=== PATIENT | male | born 1990 | race Hispanic/Latino ===

== ENCOUNTER 2017-05-16 17:33 | Emergency (ER) | payer OTHER ==
[~2017-05-16] VITALS: Ht 185.4 cm; Wt 112.5 kg
--- OUTSIDE RECORDS SUMMARY | 2017-05-16 17:36 | XMS REPORT | Clinical Summary ---
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 Disp. Refills Start End Date Status Date clomiPHENE (CLOMID) 50 mg Take 50 mg by mouth every Active tablet other day. cephalexin (KEFLEX) 500 Take 1 capsule (500 mg 21 capsule 0 04/08/19 04/15/19 MG capsule total) by mouth 3 (three) 18 18 times daily for 7 days. traMADol (ULTRAM) 50 mg Take 1 tablet (50 mg 30 tablet 0 04/08/19 tablet total) by mouth every 6 18 18 (six) hours as needed for Pain for up to 10 days. Max Daily Amount: 200 mg Active Problems Not on file Encounters Date Type Specialty Care Team Description 04/08/2017 Hospital Darius Jaimes MD Encounter 04/08/2017 Procedure Pass 04/08/2017 Surgery Darius Jaimes MD VARICOCELECTOMY 04/07/2017 Anesthesia Galo Carlos Event MD Hannah after 05/15/2016 Immunizations Name Dates Previously Given Next Due Tdap 12/07/2014 Social History Tobacco Use Types Packs/Day Years Used Date Never Smoker Smokeless Tobacco: Never Used Alcohol Use Drinks/Week oz/Week Comments Yes occasionally Sex Assigned at Date Recorded Not on file Last Filed Vital Signs Vital Sign Reading Time Taken Blood Pressure 150/70 04/08/2017 1:35 PM [facility] Pulse 74 04/08/2017 1:35 PM [facility] Temperature 36.4 C (97.6 F) 04/08/2017 12:50 PM [facility] Respiratory Rate 16 04/08/2017 1:35 PM [facility] Oxygen Saturation 97% 04/08/2017 1:35 PM [facility] Inhaled Oxygen - - Concentration Weight 110.2 kg (242 lb 14.4 oz) 04/08/2017 9:20 AM [facility] Height 185.4 cm (6' 1") 04/08/2017 9:20 AM [facility] Body Mass Index 32.05 04/08/2017 9:20 AM [facility] Plan of Treatment Not on file Procedures Procedure Name Priority Date/Time Associated Diagnosis Comments SPERMATOCELECTOMY 04/08/2017 Scrotal varices 10:45 AM [facility] VARICOCELECTOMY 04/08/2017 Scrotal varices 10:45 AM [facility] after 05/15/2016 Results * Tissue Exam (04/08/2017 10:51 AM) Component Value Ref Range Case Report Surgical Pathology Report Case: [id number] Authorizing Provider: Darius Jaimes MD Collected: 04/08/2017 1051 Ordering Location: [facility] Received: 04/08/2017 1345 SERVICES Pathologist: Margarito Danielle MD Specimen: Spermatocele, left spermatocele sac DIAGNOSIS SCROTUM, LEFT, SPERMATOCELECTOMY: - SPERMATOCELE - MILD CHRONIC INFLAMMATION, NEGATIVE FOR MALIGNANCY Signing Pathologist Direct Phone Line: [phone] CPT Code(s) 36354 CLINICAL HISTORY Scrotal varices and spermatocele SPECIMEN SOURCE Left spermatocele sac GROSS DESCRIPTION The specimen is received in a formalin-filled container and labeled with the patient's information and labeled "spermatocele sac, left side" and consists of a flat segment of singh-pink membranous tissue measuring 1 x 0.8 x 0.1 cm. The tissue is sectioned and submitted entirely A1. CG/pl MICROSCOPIC DESCRIPTION Performed. Specimen Performing Laboratory Tissue - Spermatocele [facility] [address] [place] [address] after 05/15/2016
--- OUTSIDE RECORDS SUMMARY | 2017-05-16 17:36 | XMS REPORT ---
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 Allergies, Adverse Reactions, Alerts This patient has no known allergies or adverse reactions. Medications This patient has no known medications. Results Test Description Test Time Test Comments Text Results Atomic Results Result Comments TISSUE EXAM 2017-04-09 16:20:00 Surgical Pathology Report Case: [id number] Authorizing Provider: Heidi Shepard MD Collected: 04/08/2017 1051 Order[facility] Location: [facility] Received: 2017 1345 SERVICES Pathologist: Margarito Danielle MD Specimen: Spermatocele, left spermatocele sac SCROTUM, LEFT, SPERMATOCELECTOMY:- SPERMATOCELE- MILD CHRONIC INFLAMMATION, NEGATIVE FOR MALIGNANCY Signing Pathologist Direct Phone Line: [phone] signed by Margarito Danielle MD on 04/09/2017 at 4:20 [id number] varices and spermatoceleLeft spermatocele sacThe specimen is received in a formalin-filled container and labeled with the patient's information and labeled "spermatocele sac, left side" and consists of a flat segment of singh-pink membranous tissue measuring 1 x 0.8 x 0.1 cm. The tissue is sectioned and submitted entirely A1. CG/pl Performed.
[2017-05-16] MEDS ORDERED: LIDOCAINE HCL 1% LOCAL INJ 20 ML VIAL INJ ONE (18:15)
[2017-05-16] MEDS ORDERED: TETANUS/DIPHTHERIA TOX ADULT 0.5 ML SYR IM ONE (18:15)
[2017-05-16 18:27] VITALS: BP 132/60
== END 2017-05-16 18:25 | disposition home or self-care (01) ==
LOC: FSED 17:33
DX: S61.216A Laceration without foreign body of right little finger without damage to nail, initial encounter (principal); W26.0XXA Contact with knife, initial encounter; Y92.008 Other place in unspecified non-institutional (private) residence as the place of occurrence of the external cause
CPT/HCPCS: 12001; 90471; 90714; 99283; J2001